=== PATIENT | male | born 1970 | race Caucasian/White ===

== ENCOUNTER 2020-09-30 15:54 | Emergency (ER) | payer OTHER, SELFPAY ==
[2020-09-30 16:15] VITALS: BP 151/70; PULSE 80; RESP 21; TEMP 37; O2SAT 99; BMI 51.6
[2020-09-30 16:19] VITALS: BP 151/70; PULSE 80; RESP 21; TEMP 37; O2SAT 99
--- NOTE | 2020-09-30 16:26 | XR_ITS ---
EXAMINATION: XR CHEST CLINICAL INFORMATION: Dyspnea. COMPARISON: None TECHNIQUE: Frontal upright portable view of the chest was obtained. FINDINGS: No significant abnormality is noted involving the heart, lungs, mediastinum, bony thorax or soft tissues. XR/XR chest 1V IMPRESSION: Unremarkable examination.
--- NOTE | 2020-09-30 16:26 | ECG_ITS ---
Test Reason : DYSPNEA/COVID+ Blood Pressure : / mmHG Vent. Rate : 082 BPM Atrial Rate : 082 BPM P-R Int : 156 ms QRS Dur : 094 ms QT Int : 372 ms P-R-T Axes : 024 030 033 degrees QTc Int : 434 ms Artifact in tracing Normal sinus rhythm Otherwise normal ECG When compared with ECG of 18-APR-2005 18:25, No significant changes seen Referred By: Lynn Diallo Electronically Signed By:LAUREN MONTIEL
--- NOTE | 2020-09-30 16:27 | ED_ITS ---
HPI - General Adult General Chief complaint: General Medical Stated complaint: Covid Positive Time Seen by Provider: 09/30/20 16:16 Source: patient Mode of arrival: ambulatory Limitations: no limitations History of Present Illness HPI narrative: 50 yo dx with COVID on 09/27 has had symptoms since 09/22 noted since last night his breathing and feeling of chest heaviness has worsened, also c/o diarrhea and feeling weak and dizzy complaint: dyspnea Onset (ago): day(s) (last night much worse today) Location: chest Radiation: non-radiation Severity: moderate Quality: aching Pain Consistency: constant Relieving factors: none Exacerbating factors: movement Associated symptoms: cough, loss of appetite, malaise, nausea/vomiting, shortness of breath, weakness and other (diarrhea) Treatments prior to arrival: other (tylenol) Related Data Previous Rx's Medication Instructions Recorded azithromycin See Rx Instructions PO .COMPLEX #6 09/30/20 tab Allergies Allergy/AdvReac Type Severity Reaction Status Date / Time No Known Allergies Allergy Unknown Unverified 06/17/20 15:13 Review of Systems Review of Systems: Constitutional : pos Fever, pos Chills ENT/Mouth : No sore throat, No Rhinorrhea, No Swallowing Difficulty Eyes: No Eye Pain, No Swelling, No Redness Cardiovascular : pos Chest Pain, positive SOB, No Orthopnea, no Edema Respiratory : pos Cough, No Sputum, No Wheezing, positive dyspnea Gastrointestinal : pos Nausea, No Vomiting, pos Diarrhea, pos abdominal Pain, No Hematochezia, No Melena Genitourinary : No Dysuria, No Urinary Frequency, No Hematuria Musculoskeletal : No joint pain, pos Myalgias Skin : No Skin Lesions, No rash Neuro : pos Weakness, No Numbness, No Dizziness, No Headache Psych : No Anxiety/Panic, No Depression Heme/Lymph: No Bruising, No Lymphadenopathy Endocrine : No Polyuria, No Polydipsia All other systems reviewed and are negative PMFSH Past Medical History Attestation statement: The following information was validated with the patient. Medical History Obesity Social History Social History Alcohol intake: current Alcohol intake frequency: holidays/special occasions only Alcohol type: wine Smoking Status: Never smoker Smoked in Last 30 Days: No Use of substances other than those prescribed or required for medical reasons: No Advance Directives: No Advance Directives Information Provided: No Physical Exam Vital Signs: Vital Signs: Last Vital Signs Temp 98.6 F 09/30/20 17:25 Pulse 83 09/30/20 17:25 Resp 20 09/30/20 17:25 BP 133/56 L 09/30/20 17:25 Pulse Ox 98 09/30/20 17:25 Body Mass Index 51.6 Appearance: Alert. Oriented X3. No acute distress. Anxious Eyes: Pupils equal, round and reactive to light. ENT: Pharynx normal. Neck: Normal inspection. Neck supple. CVS: Normal heart rate and rhythm. Pulses normal. Respiratory: No respiratory distress. Breath sounds bilateral rhonchi, very faint end exp wheezes posterior upper lobes Abdomen: Soft and non-tender. Skin: Skin warm and dry. Normal skin color. Normal skin turgor. Extremities: No lower extremity edema. No calf ttp Neuro: Oriented X 3. No motor deficit. No sensory deficit. Course Course Course Narrative: EKG and trop negative at 6hr charles, elevated ddimer CTA ordered for PE given complaints CTA negative for PE at this time, no hypoxia, will see how he feels he is able to tolerate PO, Medical Decision Making [facility] Narrative Medical decision making narrative: 50 yo male with obesity here with URI since 09/22 + COVID test came bace a few days ago since last night and this AM noted more dyspnea and chest tightness his RA sats are 100% now, will need labs, ddimer, troponin, EKG, CXR, given INH, very gentle fluid hydration he c/o dizziness and significant diarrhea - 1L of IVF over 2 hours ordered, dispo per results and findings. Lab Data Result diagrams: 09/30/20 16:58 09/30/20 16:58 Labs: Lab Results 09/30/20 09/30/20 09/30/20 Range/Units 16:58 16:58 16:58 WBC 6.4 (4.8-10.8) X10*3/uL RBC 5.45 (4.60-5.80) X10*6/uL Hgb 14.6 (14.0-18.0) g/dl Hct 43.5 (42-52) % MCV 79.8 L (80-98) fL MCH 26.8 L (27.0-33.0) pg MCHC 33.6 (31.0-36.0) g/dl RDW 12.6 (11.0-16.0) % Plt Count 325 (160-400) X10*3/uL MPV 9.7 (9.4-12.4) fL Immature Gran % (Auto) 0.6 H (0.0-0.4) % Neut % (Auto) 63.7 (45-73) % Lymph % (Auto) 22.2 (20-40) % [place] % (Auto) 13.0 H (2-11) % Eos % (Auto) 0.3 (0-4) % Baso % (Auto) 0.2 (0-2) % Lymph # (Auto) 1.4 (1.2-4.9) X10*3/uL [place] # (Auto) 0.8 (0.1-1.2) X10*3/uL Eos # (Auto) 0.0 (0.0-0.4) X10*3/uL Baso # (Auto) 0.0 (0.0-0.2) X10*3/uL Abs Immat Gran (auto) 0.04 H (0.00-0.03) X10*3/uL Absolute Neuts (auto) 4.1 (2.0-8.3) X10*3/uL Absolute Nucleated RBC 0.000 (0.0-0.012) X10*3/uL Nucleated RBC % (auto) 0.0 (0.0-0.2) /100WBC PT 14.4 H (10.8-13.0) SEC INR 1.2 H (0.9-1.1) APTT 30.5 (24.1-38.0) SEC D-Dimer 354 NG/ML VBG pH (7.32-7.43) VBG pCO2 mmhg VBG pO2 mmhg VBG HCO3 mmol/L VBG O2 Saturation % VBG Base Excess mmol/L Sodium 138 (135-145) mmol/L Potassium 3.3 (3.3-5.1) mmol/l Chloride 102 (96-108) mmol/L Carbon Dioxide 25 (22-29) mmol/L Anion Gap 14 (12-20) BUN 10 (9-16) mg/dL Creatinine 0.78 (0.5-1.4) mg/dL Estim Creat Clear Calc 156.1 Estimated GFR > 60 Random Glucose 102 (60-115) mg/dL Lactic Acid (0.5-2.0) mmol/L Calcium 8.7 (8.4-10.2) mg/dL Magnesium 1.9 (1.6-2.6) mg/dL Ferritin 437 H (20-250) ng/mL Total Bilirubin 0.4 (0.0-1.0) mg/dL Direct Bilirubin 0.2 (0.0-0.5) mg/dL AST 30 (5-37) U/L ALT 38 (0-40) U/L Alkaline Phosphatase 82 (39-117) U/L Lactate Dehydrogenase 252 (118-273) U/L Total Creatine Kinase 121 (38-174) U/L Troponin I High Sens (<3.5-35.0) ng/L B-Natriuretic Peptide (<100) pg/mL Total Protein 6.8 (6.5-8.0) g/dL Albumin 4.1 (3.5-5.0) g/dL Lipase 39 (8-78) U/L Procalcitonin ng/mL 09/30/20 09/30/20 09/30/20 Range/Units 16:58 16:58 16:58 WBC (4.8-10.8) X10*3/uL RBC (4.60-5.80) X10*6/uL Hgb (14.0-18.0) g/dl Hct (42-52) % MCV (80-98) fL MCH (27.0-33.0) pg MCHC (31.0-36.0) g/dl RDW (11.0-16.0) % Plt Count (160-400) X10*3/uL MPV (9.4-12.4) fL Immature Gran % (Auto) (0.0-0.4) % Neut % (Auto) (45-73) % Lymph % (Auto) (20-40) % [place] % (Auto) (2-11) % Eos % (Auto) (0-4) % Baso % (Auto) (0-2) % Lymph # (Auto) (1.2-4.9) X10*3/uL [place] # (Auto) (0.1-1.2) X10*3/uL Eos # (Auto) (0.0-0.4) X10*3/uL Baso # (Auto) (0.0-0.2) X10*3/uL Abs Immat Gran (auto) (0.00-0.03) X10*3/uL Absolute Neuts (auto) (2.0-8.3) X10*3/uL Absolute Nucleated RBC (0.0-0.012) X10*3/uL Nucleated RBC % (auto) (0.0-0.2) /100WBC PT (10.8-13.0) SEC INR (0.9-1.1) APTT (24.1-38.0) SEC D-Dimer NG/ML VBG pH (7.32-7.43) VBG pCO2 mmhg VBG pO2 mmhg VBG HCO3 mmol/L VBG O2 Saturation % VBG Base Excess mmol/L Sodium (135-145) mmol/L Potassium (3.3-5.1) mmol/l Chloride (96-108) mmol/L Carbon Dioxide (22-29) mmol/L Anion Gap (12-20) BUN (9-16) mg/dL Creatinine (0.5-1.4) mg/dL Estim Creat Clear Calc Estimated GFR Random Glucose (60-115) mg/dL Lactic Acid 1.3 (0.5-2.0) mmol/L Calcium (8.4-10.2) mg/dL Magnesium (1.6-2.6) mg/dL Ferritin (20-250) ng/mL Total Bilirubin (0.0-1.0) mg/dL Direct Bilirubin (0.0-0.5) mg/dL AST (5-37) U/L ALT (0-40) U/L Alkaline Phosphatase (39-117) U/L Lactate Dehydrogenase (118-273) U/L Total Creatine Kinase (38-174) U/L Troponin I High Sens 4.4 (<3.5-35.0) ng/L B-Natriuretic Peptide < 10 (<100) pg/mL Total Protein (6.5-8.0) g/dL Albumin (3.5-5.0) g/dL Lipase (8-78) U/L Procalcitonin 0.04 ng/mL 09/30/20 Range/Units 17:06 WBC (4.8-10.8) X10*3/uL RBC (4.60-5.80) X10*6/uL Hgb (14.0-18.0) g/dl Hct (42-52) % MCV (80-98) fL MCH (27.0-33.0) pg MCHC (31.0-36.0) g/dl RDW (11.0-16.0) % Plt Count (160-400) X10*3/uL MPV (9.4-12.4) fL Immature Gran % (Auto) (0.0-0.4) % Neut % (Auto) (45-73) % Lymph % (Auto) (20-40) % [place] % (Auto) (2-11) % Eos % (Auto) (0-4) % Baso % (Auto) (0-2) % Lymph # (Auto) (1.2-4.9) X10*3/uL [place] # (Auto) (0.1-1.2) X10*3/uL Eos # (Auto) (0.0-0.4) X10*3/uL Baso # (Auto) (0.0-0.2) X10*3/uL Abs Immat Gran (auto) (0.00-0.03) X10*3/uL Absolute Neuts (auto) (2.0-8.3) X10*3/uL Absolute Nucleated RBC (0.0-0.012) X10*3/uL Nucleated RBC % (auto) (0.0-0.2) /100WBC PT (10.8-13.0) SEC INR (0.9-1.1) APTT (24.1-38.0) SEC D-Dimer NG/ML VBG pH 7.48 H (7.32-7.43) VBG pCO2 35 mmhg VBG pO2 28 mmhg VBG HCO3 25 mmol/L VBG O2 Saturation 60.5 % VBG Base Excess 2.0 mmol/L Sodium (135-145) mmol/L Potassium (3.3-5.1) mmol/l Chloride (96-108) mmol/L Carbon Dioxide (22-29) mmol/L Anion Gap (12-20) BUN (9-16) mg/dL Creatinine (0.5-1.4) mg/dL Estim Creat Clear Calc Estimated GFR Random Glucose (60-115) mg/dL Lactic Acid (0.5-2.0) mmol/L Calcium (8.4-10.2) mg/dL Magnesium (1.6-2.6) mg/dL Ferritin (20-250) ng/mL Total Bilirubin (0.0-1.0) mg/dL Direct Bilirubin (0.0-0.5) mg/dL AST (5-37) U/L ALT (0-40) U/L Alkaline Phosphatase (39-117) U/L Lactate Dehydrogenase (118-273) U/L Total Creatine Kinase (38-174) U/L Troponin I High Sens (<3.5-35.0) ng/L B-Natriuretic Peptide (<100) pg/mL Total Protein (6.5-8.0) g/dL Albumin (3.5-5.0) g/dL Lipase (8-78) U/L Procalcitonin ng/mL ECG Data Attestation: I personally reviewed and interpreted this ECG as follows: Interpretation: Rate: 82 Rhythm: NSR [place]: normal Normal P waves. Normal ZACH. Normal QRS complex. ST T wave : no MELVIN qTC: normal prior studies: artifact, no acute ischemia The study has been interpreted contemporaneously by me. . Discharge Plan Discharge Clinical Impression: COVID-19, Pneumonia due to COVID-19 virus Patient Disposition: Home, Self-Care Instructions: COVID-19 (Coronavirus Disease 2019) (ED) Additional Instructions: return to ED for any worsening symptoms or concerns continue to hydrate, if you are so short of breath you cannot make it to your bathroom that is not normal you need to come back your labs looked good no signs of dehydration, your CT scan showed some patchy areas on the left lung that are consistent with COVId but no blood clot, your heart tests were normal, your oxygen levels remained over 98% Prescriptions: New azithromycin 500 mg tablet See Rx Instructions PO .COMPLEX Qty: 6 RF: 0 Stand Alone Forms: Work/School Release
[2020-09-30] MEDS: Albuterol Sulfate 90 MCG 8 GM INHALER 2 PUFF INHALE (16:37)
[2020-09-30 16:39] VITALS: PULSE 84; O2SAT 99
[2020-09-30 17:06] LABS: Basophils Percent Auto 0.2 % (0-2); Eosinophils Percent Auto 0.3 % (0-4); Hematocrit 43.5 % (42-52); Hemoglobin 14.6 g/dl (14.0-18.0); Imm Gran Abs Auto 0.04 X10*3/uL (0.00-0.03); Imm Gran Pct Auto 0.6 % (0.0-0.4); Lymphocytes Absolute Auto 1.4 X10*3/uL (1.2-4.9); Lymphocytes Percent Auto 22.2 % (20-40); MANUAL DIFF FLAG NO; Mean Corpuscular HGB Conc 33.6 g/dl (31.0-36.0); Mean Corpuscular Hemoglobin 26.8 pg (27.0-33.0); Mean Corpuscular Volume 79.8 fL (80-98); Mean Platelet Volume 9.7 fL (9.4-12.4); Monocytes Absolute Auto 0.8 X10*3/uL (0.1-1.2); Neutrophils Absolute Auto 4.1 X10*3/uL (2.0-8.3); Neutrophils Percent Auto 63.7 % (45-73); Platelet Count 325 X10*3/uL (160-400); Red Blood Count 5.45 X10*6/uL (4.60-5.80); Red Cell Distribution Width 12.6 % (11.0-16.0); White Blood Count 6.4 X10*3/uL (4.8-10.8)
[2020-09-30 17:14] LABS: INTERNATIONAL NORM RATIO 1.2 (0.9-1.1); Prothrombin Time 14.4 SEC (10.8-13.0)
[2020-09-30 17:15] LABS: HCO3 VBG 25 mmol/L; PCO2 VBG 35 mmhg; PO2 VBG 28 mmhg; pH VBG 7.48 (7.32-7.43)
[2020-09-30 17:16] LABS: Oxygen Saturation VBG 60.5 %
[2020-09-30 17:17] LABS: D Dimer 354 NG/ML; Partial Thromboplastin Time 30.5 SEC (24.1-38.0)
[2020-09-30 17:24] LABS: Lactic Acid 1.3 mmol/L (0.5-2.0)
[2020-09-30 17:25] VITALS: BP 133/56; PULSE 83; RESP 20; TEMP 37; O2SAT 98
--- NOTE | 2020-09-30 17:26 | CT_ITS ---
EXAMINATION: CT ANGIOGRAM OF THE CHEST WITH AND WITHOUT CONTRAST (CT PULMONARY ANGIOGRAM FOR PE) CLINICAL INFORMATION: Reason for Exam COVID positive, elevated ddimer eval for PE COMPARISON: None TECHNIQUE: Prior to contrast administration, noncontrast localization images were obtained. Subsequently, multidetector volumetric imaging was performed from the thoracic inlet to below the diaphragms following the administration of 65 mL Omnipaque 350 intravenous contrast. No contrast reaction reported Sagittal, coronal, and MIP oblique sagittal reformatted images were obtained on the CT workstation, uploaded to PACS, and reviewed. This CT examination was performed using dose optimization techniques as appropriate, variously including the following: *Automated exposure control *Adjustment of mA and/or kV according to patient size (this includes techniques or standardized protocols for targeted exams where dose is matched to indication/reason for exam; i.e. extremities or head) *Use of iterative reconstruction technique Total exam dose-length product 598 mGy-cm FINDINGS: [employer]: There are some patchy opacities in the left retrocardiac region and perhaps the left suprahilar region. QUALITY OF STUDY/CONTRAST BOLUS: The enhancement of the pulmonary vessels is marginal. There is some motion artifact. There is artifact related to high density within the SVC and left brachiocephalic vein. PULMONARY ARTERIES: No acute pulmonary embolus demonstrated. The main pulmonary artery is normal caliber. THORACIC AORTA: There is no thoracic aortic aneurysm. The heart is not enlarged. There is no pericardial fluid or thickening. LUNG: Expiratory results. No abnormality of the central airways. There are some scattered patchy opacities in the apical posterior left upper lobe and in the inferior lingula. There are patchy opacities in the left lower lobe and some minor opacities in the dependent right lower lobe and a few scattered opacities in the right upper lobe. The pattern is not entirely specific but is consistent with viral pneumonia. There is no alveolar edema. There is a small cyst in the right lower lobe. PLEURA: There is no significant pleural fluid. There is no pneumothorax. MEDIASTINUM: There are a few nonspecific mediastinal and hilar lymph nodes which could be reactive. No abnormality of the esophagus. No evidence of septal bowing or right heart strain. CHEST WALL/AXILLA: No axillary or internal mammary lymphadenopathy. OSSEOUS STRUCTURES: No acute or suspicious osseous abnormality. UPPER ABDOMEN: Fatty change in the liver. No suspicious abnormality. No reflux of contrast into the hepatic veins to suggest elevated right heart pressures. CT/CT angio chest PE protocol IMPRESSION: No acute pulmonary embolus. Scattered areas of pneumonia. In the appropriate clinical setting this could represent atypical viral pneumonia but is nonspecific. VTE: negative
[2020-09-30 17:31] LABS: Alanine Aminotransferase 38 U/L (0-40); Albumin Level 4.1 g/dL (3.5-5.0); Alkaline Phosphatase 82 U/L (39-117); Anion Gap 14 (12-20); Aspartate Amino Transferase 30 U/L (5-37); Bilirubin Direct 0.2 mg/dL (0.0-0.5); Bilirubin Total 0.4 mg/dL (0.0-1.0); Blood Urea Nitrogen 10 mg/dL (9-16); Calcium 8.7 mg/dL (8.4-10.2); Carbon Dioxide 25 mmol/L (22-29); Chloride 102 mmol/L (96-108); Creatinine Clr Calc Pharmacy 156.1; Estimated Glomerular Filt Rate > 60; Glucose Random 102 mg/dL (60-115); Lactate Dehydrogenase 252 U/L (118-273); Lipase 39 U/L (8-78); Magnesium 1.9 mg/dL (1.6-2.6); Potassium 3.3 mmol/l (3.3-5.1); Sodium 138 mmol/L (135-145); Total Protein 6.8 g/dL (6.5-8.0)
[2020-09-30 17:33] LABS: B Type Natriuretic Peptide < 10 pg/mL (<100); Troponin-I High Sensitivity 4.4 ng/L (<3.5-35.0)
[2020-09-30] MEDS: 0.9 % Sodium Chloride 1,000 ML 999 ML IVCONT (17:33)
[2020-09-30 17:48] LABS: Procalcitonin 0.04 ng/mL
[2020-09-30 17:51] LABS: Ferritin 437 ng/mL (20-250)
[2020-09-30] MEDS: iohexoL 350 MG/ML 100 ML INFUS..BTL IV (18:38)
== END 2020-09-30 19:54 | disposition home or self-care (01) ==
PROVIDERS: Emergency Provider Emergency Medicine; PCP Internal Medicine
DX: U07.1 COVID-19 (principal); J12.89 Other viral pneumonia
CPT/HCPCS: 36415; 71045; 71275; 80048; 80076; 82550; 82728; 82803; 83605; 83615; 83690; 83735; 83880; 84145; 84484; 85025; 85379; 85610; 85730; 87040; 93005; 94640; 96360; 99284; 99285; Q9967

== ENCOUNTER → 2021-04-18 20:20 | Outpatient (REF) | payer OTHER, SELFPAY | LOC: HO.SL 20:20 | PROVIDERS: PCP Internal Medicine; Visit Provider Internal Medicine | DX: G47.33 Obstructive sleep apnea (adult) (pediatric) (principal); R06.83 Snoring | CPT/HCPCS: 95811 ==

== ENCOUNTER 2022-06-02 07:18 | Outpatient (REF) | payer OTHER, SELFPAY ==
[2022-06-02 07:25] LABS: MANUAL DIFF FLAG NO
[2022-06-02 07:46] LABS: Basophils Absolute Auto 0.1 X10*3/uL (0.0-0.2); Basophils Percent Auto 0.5 % (0-2); Eosinophils Absolute Auto 0.2 X10*3/uL (0.0-0.4); Hematocrit 41.9 % (42.0-52.0); Hemoglobin 14.2 g/dl (14.0-18.0); Imm Gran Abs Auto 0.07 X10*3/uL (0.00-0.03); Imm Gran Pct Auto 0.6 % (0.0-0.4); Lymphocytes Absolute Auto 2.5 X10*3/uL (1.2-4.9); Lymphocytes Percent Auto 22.4 % (20-40); Mean Corpuscular HGB Conc 33.9 g/dl (31.0-36.0); Mean Corpuscular Hemoglobin 27.7 pg (27.0-33.0); Mean Corpuscular Volume 81.8 fL (80.0-98.0); Mean Platelet Volume 9.7 fL (9.4-12.4); Monocytes Percent Auto 8.8 % (2-11); Neutrophils Absolute Auto 7.2 x10*3/uL (2.0-8.3); Neutrophils Percent Auto 65.7 % (45-73); Platelet Count 321 X10*3/uL (160-400); Red Blood Count 5.12 X10*6/uL (4.60-5.80); Red Cell Distribution Width 12.8 % (11.0-16.0)
[2022-06-02 08:31] LABS: Alanine Aminotransferase 27 U/L (0-40); Albumin Level 3.8 g/dL (3.5-5.0); Alkaline Phosphatase 75 U/L (39-117); Anion Gap 15 (12-20); Aspartate Amino Transferase 18 U/L (5-37); Bilirubin Total 0.3 mg/dL (0.0-1.0); Blood Urea Nitrogen 16 mg/dL (9-16); Calcium 8.6 mg/dL (8.4-10.2); Carbon Dioxide 25 mmol/L (22-29); Chloride 105 mmol/L (96-108); Cholesterol 172 mg/dL; Estimated Glomerular Filt Rate > 60; Glucose Random 100 mg/dL (60-115); HDL Cholesterol 41 mg/dL; LDL Cholesterol Calculated 107 mg/dl; Potassium 4.5 mmol/L (3.3-5.1); Sodium 140 mmol/L (135-145); Total Protein 6.5 g/dL (6.5-8.0); Triglycerides 123 mg/dL
[2022-06-02 08:55] LABS: Prostate Specific Antigen 0.39 ng/mL (<0.05-4.0)
== END 2022-06-02 07:19 | disposition home or self-care (01) ==
LOC: HO.LAB 07:18
PROVIDERS: PCP Internal Medicine; Visit Provider Internal Medicine
DX: Z00.00 Encounter for general adult medical examination without abnormal findings (principal); Z12.5 Encounter for screening for malignant neoplasm of prostate
CPT/HCPCS: 36415; 80053; 80061; 84153; 85025

== ENCOUNTER 2024-11-28 09:53 | Emergency (ER) | payer OTHER, SELFPAY ==
--- NOTE | ~2024-11-28 | US_ITS ---
EXAMINATION: US TRIPLEX LOWER EXTREMITY, LEFT CLINICAL INFORMATION: Left leg swelling and pain. COMPARISON: None available. TECHNIQUE: Color-flow triplex imaging with spectral analysis and compression Doppler were performed on the left lower extremity. FINDINGS: Respiratory variation, normal compression and augmented flow are noted throughout the left lower extremity. The visualized common femoral vein, superficial femoral vein, profunda femoral vein, popliteal vein and midcalf peroneal and posterior tibial venous segments show no evidence of deep venous thrombosis. There is no Barkley's cyst. There is mild calf edema. US/US venous duplex LE IMPRESSION: No evidence of deep venous thrombosis involving the left lower extremity. Electronically signed by: Angel La MD 11/28/2024 11:50 AM SOCO
[2024-11-28 10:05] VITALS: BP 159/88; PULSE 81; RESP 20; TEMP 36.6; O2SAT 99; BMI 60.4
[2024-11-28 10:22] LABS: MANUAL DIFF FLAG NO
[2024-11-28 10:23] LABS: Basophils Absolute Auto 0.1 X10*3/uL (0.0-0.2); Basophils Percent Auto 0.5 % (0-2); Eosinophils Absolute Auto 0.3 X10*3/uL (0.0-0.4); Eosinophils Percent Auto 2.5 % (0-4); Hemoglobin 14.2 g/dl (14.0-18.0); Imm Gran Abs Auto 0.06 X10*3/uL (0.00-0.03); Imm Gran Pct Auto 0.5 % (0.0-0.4); Mean Corpuscular HGB Conc 33.8 g/dl (31.0-36.0); Mean Corpuscular Hemoglobin 28.3 pg (27.0-33.0); Mean Corpuscular Volume 83.7 fL (80.0-98.0); Mean Platelet Volume 9.6 fL (9.4-12.4); Monocytes Absolute Auto 0.9 X10*3/uL (0.1-1.2); Monocytes Percent Auto 8.2 % (2-11); Neutrophils Absolute Auto 7.8 x10*3/uL (2.0-8.3); Neutrophils Percent Auto 70.3 % (45-73); Platelet Count 330 X10*3/uL (160-400); Red Blood Count 5.02 X10*6/uL (4.60-5.80); Red Cell Distribution Width 13.2 % (11.0-16.0)
[2024-11-28 10:46] LABS: Alanine Aminotransferase 40 U/L (0-40); Albumin Level 3.9 g/dL (3.5-5.0); Anion Gap 10 (12-20); Aspartate Amino Transferase 26 U/L (5-37); Bilirubin Direct 0.2 mg/dL (0.0-0.5); Bilirubin Total 0.4 mg/dL (0.0-1.0); Blood Urea Nitrogen 13 mg/dL (9-16); Calcium 8.9 mg/dL (8.4-10.2); Carbon Dioxide 23 mmol/L (22-29); Chloride 112 mmol/L (96-108); Creatinine Clr Calc Pharmacy 185.9; Estimated Glomerular Filt Rate > 60; Glucose Random 104 mg/dL (60-115); Lipase 23 U/L (8-78); Sodium 141 mmol/L (135-145)
[2024-11-28 10:49] LABS: Alkaline Phosphatase 80 U/L (39-117)
[2024-11-28 17:21] VITALS: BP 176/84; PULSE 76; RESP 20; TEMP 36.2; O2SAT 98
--- NOTE | 2024-11-28 17:21 | ED_ITS ---
HPI - Skin/Abscess/Foreign Bdy General Chief complaint: Skin/Abscess/Foreign Body Stated complaint: l leg cellulitis Time Seen by Provider: 11/28/24 17:31 Source: patient, RN notes reviewed and old records reviewed Mode of arrival: ambulatory History of Present Illness ED Provider: Christy Hair PA-C HPI narrative: 54-year-old male with a past medical history of obesity presenting to the ED sent from urgent care complaining of left lower extremity swelling, erythema, and weeping x3-4 days. Reports bilateral LE edema, chronically. Denies fever, chills, SOB, CP, travel Related Data Previous Rx's ?Medication ?Instructions ?Recorded azithromycin 500 mg tablet See Rx Instructions PO .COMPLEX #6 09/30/20 tabs cephalexin 500 mg capsule 500 mg PO QID 7 days #28 caps 11/28/24 furosemide 20 mg tablet (Lasix) 20 mg PO DAILY 5 days #5 tabs 11/28/24 Allergies Allergy/AdvReac Type Severity Reaction Status Date / Time No Known Allergies Allergy Unknown Verified 11/28/24 10:09 Review of Systems 2 Review of Systems: Yes all other systems are reviewed and are negative Constitutional: Constitutional: Reports as per HPI [facility] Past Medical History Attestation statement: The following information was validated with the patient. Source: old records reviewed Medical History Obesity Social History Social History Alcohol intake: current Alcohol intake frequency: holidays/special occasions only Alcohol type: wine Physical Exam 2 Vital Signs: Vital Signs: Last Vital Signs Temp 97.2 F 11/28/24 17:21 Pulse 76 11/28/24 17:21 Resp 20 11/28/24 17:21 BP 176/84 H 11/28/24 17:21 Pulse Ox 98 11/28/24 17:21 O2 Del Method Room Air 11/28/24 17:21 BMI result Body Mass Index 60.4 Const: General: cooperative, healthy appearing and no acute distress O rientation/consciousness: patient oriented x3 Limitations: no limitations HEENT: Head: Yes normal to inspection and Yes atraumatic Ears: hearing grossly normal bilaterally General nose exam: Normal external nose present Face and sinus: Yes normal facial exam Eyes: General: appearance normal, both eyes and all related structures EOM: EOMs intact bilaterally Neck: Neck: Yes normal visual inspection and Yes no meningeal signs Resp: Effort & Inspection: normal respiratory effort and no respiratory distress Cardio: Rate: regular rate Skin: Rashes: no rashes Neuro: General: patient oriented x3, tone normal and no meningeal signs C ranial nerves: Yes CN's II-XII intact bilaterally Gait exam (Neuro): Normal gait present Extrem: Other: + bilateral LE nonpitting edema. Chroni c venous stasis changes bilaterally. +LLE with faint erythema, no warmth. No weeping/open wounds General: Yes edema Course Course Course Narrative: This is a Rapid Medical Exam performed in triage by Christy Hair PA-C. Full HPI, ROS and PE to be performed by primary ED provider. 54 yo M presenting to the ED c/o LLE erythema/swelling x3 days. +b/l LE swelling. denies SOB. denies hx HTN PE: +b/l LE edema, +LLE erythema, difficulty evaluating in the ED triage chair Plan: Labs, Blood Cx, US -1734-- WBC count 11.0. Labs otherwise reassuring US venous duplex LE LT IMPRESSION: No evidence of deep venous thrombosis involving the left lower extremity. Results discussed with patient including worrisome signs and symptoms and strict return precautions, and when to return to the emergency department. They verbalized understanding and feel safe for discharge at this time. Medical Decision Making Medical Decision Making [facility] Narrative: 54-year-old male with a past medical history of obesity presenting to the ED sent from urgent care complaining of left lower extremity swelling, erythema, and weeping x3-4 days. On exam vital signs, NAD, nontoxic appearing, physical exam as noted above. Concern for early cellulitis vs venous stasis changes vs DVT. Low suspcion for acute CHF w/chronic edema & no SOB. Plan: Labs, ultrasound Please refer to course for remaining clinical decision making, interpretation of labs/imaging results, and discussions with consultants and/or family members. Differential Diagnosis Differential Diagnoses: The differential diagnosis associated with the presentation includes As above Admission/Observation Consideration of admission/observation: Escalation of care including admission/observation considered Lab Data [facility] Lab Attestation statement: I reviewed the patient's lab results. 11/28/24 10:17 11/28/24 10:17 Labs: Lab Results 11/28/24 Range/Units 10:17 WBC 11.0 H (4.8-10.8) X10*3/uL RBC 5.02 (4.60-5.80) X10*6/uL Hgb 14.2 (14.0-18.0) g/dl Hct 42.0 (42.0-52.0) % MCV 83.7 (80.0-98.0) fL MCH 28.3 (27.0-33.0) pg MCHC 33.8 (31.0-36.0) g/dl RDW 13.2 (11.0-16.0) % Plt Count 330 (160-400) X10*3/uL MPV 9.6 (9.4-12.4) fL Immature Gran % (Auto) 0.5 H (0.0-0.4) % Neut % (Auto) 70.3 (45-73) % Lymph % (Auto) 18.0 L (20-40) % [place] % (Auto) 8.2 (2-11) % Eos % (Auto) 2.5 (0-4) % Baso % (Auto) 0.5 (0-2) % Lymph # (Auto) 2.0 (1.2-4.9) X10*3/uL [place] # (Auto) 0.9 (0.1-1.2) X10*3/uL Eos # (Auto) 0.3 (0.0-0.4) X10*3/uL Baso # (Auto) 0.1 (0.0-0.2) X10*3/uL Abs Immat Gran (auto) 0.06 H (0.00-0.03) X10*3/uL Absolute Neuts (auto) 7.8 (2.0-8.3) x10*3/uL Absolute Nucleated RBC 0.000 (0.0-0.012) X10*3/uL Nucleated RBC % (auto) 0.0 (0.0-0.2) /100WBC Sodium 141 (135-145) mmol/L Potassium 4.0 (3.3-5.1) mmol/L Chloride 112 H (96-108) mmol/L Carbon Dioxide 23 (22-29) mmol/L Anion Gap 10 L (12-20) BUN 13 (9-16) mg/dL Creatinine 0.69 (0.5-1.4) mg/dL Estim Creat Clear Calc 185.9 Estimated GFR > 60 Random Glucose 104 (60-115) mg/dL Calcium 8.9 (8.4-10.2) mg/dL Total Bilirubin 0.4 (0.0-1.0) mg/dL Direct Bilirubin 0.2 (0.0-0.5) mg/dL AST 26 (5-37) U/L ALT 40 (0-40) U/L Alkaline Phosphatase 80 (39-117) U/L Total Protein 7.0 (6.5-8.0) g/dL Albumin 3.9 (3.5-5.0) g/dL Lipase 23 (8-78) U/L Independent Interpretation I performed an independent interpretation of an: Ultrasound Radiology Impression Discussion of test interpretation with radiology: I have reviewed the radiologist's reading. External Record Review External record reviewed: Inpatient record, Office record, Outpatient record, Prior outpatient labs, Prior outpatient radiology, Primary care record and Outside ED record Tests considered The following testing was considered but not selected: As above Prescription Management I considered prescription management with: Pain Medication Chronic Conditions Patient?s care impacted by: Other Social Determinants Patient?s care significantly limited by Social Determinants of Health including: Other Social Determinant of Health Discharge Plan Discharge Clinical Impression: Cellulitis Patient Disposition: Home, Self-Care Instructions: Cellulitis (DC) Additional Instructions: your blood work and ultrasound were reassuring You should wear compression stockings. Elevate your legs Keflex as an antibiotic please take as prescribed Lasix as a water pill, this will make you urinate, and pull water off of your body. Please have close follow-up with your primary care doctor, call to make an appointment If your legs become increasingly swollen, red, weeping, you have fever or shortness of breath return to the ED immediately Prescriptions: New furosemide [Lasix] 20 mg tablet 20 mg PO DAILY 5 Days Qty: 5 0RF cephalexin 500 mg capsule 500 mg PO QID 7 Days Qty: 28 0RF No Action azithromycin 500 mg tablet See Rx Instructions PO .COMPLEX Qty: 6 0RF Rx Instructions: take 500 mg today (day 1), then 250 mg for 4 days (days 2-5) Referrals: Rigoberto Marcelino MD [Primary Care Provider] - 5 days Discharge Date/Time: 11/28/24 17:44 Print Language: British
[2024-11-28 17:44] VITALS: BP 176/84; PULSE 76; RESP 20; TEMP 36.2; O2SAT 98
--- OUTSIDE RECORDS SUMMARY | 2024-11-28 18:13 | XMS_ITS | Clinical Summary ---
Author Organization [facility] Address [address] [place] [address] Care Team Providers Care Certified Phlebotomy Technician Name Role Phone Pcp, No Primary Care Provider Unavailabl e Allergies No known active allergies Medications No known medications Social History Tobacco Use Types Packs/Day Years Used Date Smoking Tobacco: Never Assessed Sex and Gender Information Value Date Recorded Sex Assigned at Not on file Gender Identity Not on file Sexual Orientation Not on file Last Filed Vital Signs Vital Sign Reading Time Taken Comments Blood Pressure 131/84 12/27/2021 1:43 PM EDT Pulse 108 02/13/2022 2:31 PM EDT Temperature 36.7 ??C (98.1 ??F) 02/13/2022 2:31 PM ED T Respiratory Rate - - Oxygen Saturation 98% 02/13/2022 2:31 PM EDT Inhaled Oxygen Concentration - - Weight - - Height - - Body Mass Index - - Plan of Treatment Health Maintenance Due Date Last Done Comments Hepatitis C Virus Screening 1971 HIV Screening 1984 DTaP/Tdap/Td Vaccines (1 - Tdap) 1990 Hepatitis B Vaccines (1 of 3 - 19+ 3-dose series) 1990 Colonoscopy 2016 Pneumococcal Vaccines 50+ (1 of 1 - PCV) 2021 Zoster (Shingles) Vaccine (1 of 2) 2021 Influenza Vaccine 05/01/2024 COVID-19 Vaccine (3 - 2023-2 5 season) 2024 12/14/2020, 11/16/2020 Pneumococcal Vaccine: Pediatric (0-5 Years) and At-Risk Patients (6 to 49 Years) Aged Out No longer eligible b ased on patient's age to complete this topic Care Teams Certified Phlebotomy Technician Relationship Specialty Start Date End Date Pcp, No PCP - General General Medicine 12/27/21
--- OUTSIDE RECORDS SUMMARY | 2024-11-28 18:13 | XMS_ITS | Clinical Summary ---
Author Organization [facility] ity Address [address] [place] [address] Care Team Providers Care Railroad Maintenance Clerk Name Role Phone Rigoberto Marcelino MD Primary Care Provider [phone] Social History Tobacco Use Types Packs/Day Years Used Date Smoking Tobacco: Never Assessed Sex and Gender Information Value Date Recorded Sex Assigned at Not on file Legal Sex Male 12:15 PM EST Gender Identity Not on file Sexual Orientation Not on file Plan of Treatment Health Maintenance Due Date Last Done Comments DTaP,Tdap,and Td Vaccines (1 - Tdap) 1990 Hepatitis B Vaccines (1 of 3 - 19+ 3-dose series) 1990 Pneumococcal Vaccine: 50+ Years (1 of 1 - PCV) 2021 Zoster Vaccines (1 of 2) 2021 Cholesterol Screening (Lipid Panel) 08/29/2022 Colorectal Cancer Screening: Colonoscopy 08/29/2022 Depression Screening 08/29/2022 HIV Screening 08/29/2022 Hepatitis C Screening 08/29/2022 Social Influencers of Health Screening 08/29/2022 COVID-19 Vaccine (3 - 2023-2 5 season) 2024 12/14/2020, 11/16/2020 Influenza Vaccine (#1) 2024 HIB Vaccines Aged Out No longer eligi ble based on patient's age to complete this topic HPV Vaccines Aged Out No longer eligi ble based on patient's age to complete this topic Hepatitis A Vaccines Aged Out No long er eligible based on patient's age to complete this topic IPV Vaccines Aged Out No longer eligi ble based on patient's age to complete this topic MMR Vaccines Aged Out No longer eligi ble based on patient's age to complete this topic Meningococcal ACWY Vaccine Aged Out N o longer eligible based on patient's age to complete this topic Meningococcal B Vacine Aged Out No lo nger eligible based on patient's age to complete this topic Pneumococcal Vaccine: Pediatrics (0 to 5 Years) and At-Risk Patients (6 to 64 Years) Aged Out No longer eligible b ased on patient's age to complete this topic RSV Immunization Patients Under 20 months Aged Out No longer eligible b ased on patient's age to complete this topic Varicella Vaccines Aged Out No longer eligible based on patient's age to complete this topic Care Teams Railroad Maintenance Clerk Relationship Specialty Start Date End Date Rigoberto Marcelino MD [address] [place] [address] Dr Delta [place] PCP - General Brine Tank Separator Operator 11/16/20
--- OUTSIDE RECORDS SUMMARY | 2024-11-28 18:13 | XMS_ITS | Clinical Summary ---
Author Organization [facility] Address [address] [place] [address] Care Team Providers Care Support Services Specialist Name Role Phone Rigoberto Marcelino MD Primary Care Provider [phone] Allergies No known active allergies Immunizations Name Administration Dates Next Due Covid-19 (Pfizer) Dilution Required 12/14/2020,0 11/16/2020 Social History Tobacco Use Types Packs/Day Years Used Date Smoking Tobacco: Never Assessed Sex and Gender Information Value Date Recorded Sex Assigned at Male 11/16/2020 3:00 PM EST Gender Identity Not on file Sexual Orientation Not on file Job Start Date Occupation Industry Not on file Not on file Not on file Plan of Treatment Health Maintenance Due Date Last Done Comments Hepatitis B Vaccines (1 of 3 - 3-dose series) 1971 Hepatitis C Screening 1971 Depression Screening 1983 Preventative Health Evaluation 1989 DTap / Tdap / Td (1 - Tdap) 1990 Colon Cancer Screening (Colonoscopy) 2016 Shingrix-Zoster Vaccine (1 o f 2) 2021 COVID-19 Vaccine (3 - 2023-2 5 season) 2024 12/14/2020, 11/16/2020 Influenza Vaccine (#1) 2024 Pneumococcal Vaccine Aged Out No long er eligible based on patient's age to complete this topic RSV Ped < 20 months Aged Out No longe r eligible based on patient's age to complete this topic Care Teams Support Services Specialist Relationship Specialty Start Date End Date Rigoberto Marcelino MD [address] [place] [address] [address] [place] [address] PCP - General Testing Lead 11/16/20
== END 2024-11-28 17:44 | disposition home or self-care (01) ==
PROVIDERS: Emergency Provider Student in an Organized Health Care Education/Training Program; PCP Internal Medicine
DX: L03.116 Cellulitis of left lower limb (principal); R60.0 Localized edema; Z79.899 Other long term (current) drug therapy
CPT/HCPCS: 36415; 80048; 80076; 83690; 85025; 93971; 99282; 99284

== ENCOUNTER → 2024-11-28 11:23 | Outpatient (BNV) | payer OTHER, SELFPAY | PROVIDERS: PCP Internal Medicine; Visit Provider Radiology Diagnostic Radiology | DX: M79.662 Pain in left lower leg (principal); R22.42 Localized swelling, mass and lump, left lower limb | CPT/HCPCS: 93971 ==

== ENCOUNTER 2025-02-06 13:04 | Outpatient (AMB) | payer OTHER, SELFPAY ==
--- NOTE | 2025-02-06 12:44 | MHC.PC.OV ---
Vital Signs 02/06/25 13:16 Height 5 ft 6 in Weight 172.819 kg BMI 61.5 BP 134/82 Respiration 16 Pulse 101 H Pulse Source Pulse Oximeter Temp 98.4 F Temp Source Oral Pulse Oximetry (%) 96 Oxygen Delivery Method Room Air Intake Visit Reasons: ED F/U - see comments Bean Sprout Grower Required: No Accompanied by: Self / Same As Patient Allergies No Known Allergies Allergy (Unknown, Verified 02/06/25 13:12) Medication List - Last Reconciled 02/06/25 by LINDA Pack.stocking,knee,long,x-lrg Wear compression stockings daily, may remove at night for sleep furosemide 20 mg PO DAILY ondansetron 4 mg PO Q8H PRN semaglutide 5 mg subcut .weekly Tobacco use date assessed: 02/06/25 Dental Screening Dental Screen Date: 02/06/25 Did you have a dental visit in the last 12 months?: No Did you have a dental problem in the last 6 months where you did not have access to dental care?: No Was dental information given to patient?: Patient has dentist (Upper and lower Dentures) HPI HPI Comments History of Present Illness Details 54-year-old male with history of bilateral lower extremity with chronic venous stasis dermatitis and morbid obesity with BMI 61 presents to the office today for routine visit and ED follow-up. The patient reports he has a history of recurrent cellulitis in the left lower extremity. He has been hospitalized for this in the past. On 11/28 he again was seen at [facility] and diagnosed with cellulitis of the left lower extremity. There was a mild leukocytosis of 11.0. No sepsis. He was started on Keflex and azithromycin with good effect. Since then, he continues with bilateral lower extremity edema with occasional weeping of serous fluid. He is concerned about his weight. 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 He states recently he has not been trying much as far as weight loss but has in the past been seen by manager lab and going to the gym regularly. He reports a weight gain of 40 lb over the last year. He has also been seen at [facility] with Dr. Harris and trialed a high-protein low-carbohydrate diet with good effect. However despite this, has fallen back into on healthy habits. He is interested in GLP 1 medications. He does report some dyspnea with exertion that resolves quickly with rest as well as bilateral knee pain. No shortness a breath at rest, lightheadedness, palpitations, chest pain. He is also reporting symptoms of increased urinary frequency and increase fluid intake and is concerned about type 2 diabetes. He is also reporting frequent nighttime awakenings to urinate and urinary urgency upon waking. He is overdue for colonoscopy [facility] Medical History (Updated 02/06/25 @ 13:36 by LINDA Pack) Chronic stasis dermatitis Bilateral lower extremity edema HTN (hypertension) Obesity Family History (Updated 02/06/25 @ 13:15 by KIRA Mendoza) Mother Alzheimer disease High blood pressure Smoker Father Heart attack Arthritis Social History (Updated 02/06/25 @ 13:15 by KIRA Mendoza) Housing: House Alcohol intake: current Alcohol intake frequency: holidays/special occasions only Alcohol type: wine Patient Tobacco Use Status: Former Tobacco user service: No Current occupational status: employed Cognitive needs: No Hearing needs: No Vision needs: Yes (rx glasses) Questionnaire PHQ-9 Over the last 2 weeks, how often have you been bothered by any of the following problems? 1. Little interest or pleasure in doing things: not at all 2. Feeling down, depressed, or hopeless: not at all 3. Trouble falling or staying asleep, or sleeping too much: not at all 4. Feeling tired or having little energy: not at all 5. Poor appetite or overeating: not at all 6. Feeling bad about yourself - or that you are a failure or have let yourself or your family down: not at all 7. Trouble concentrating on things, such as reading the newspaper or watching television: not at all 8. Moving or speaking so slowly that other people could have noticed. Or the opposite - being so fidgety or restless that you have been moving around a lot more than usual: not at all 9. Thoughts that you would be better off or of hurting yourself in some way: not at all Total score: 0 Source: Developed by Drs. Casey Esquivel, Trini Goodson, Heri Guerrero and colleagues, with an educational melisa from [employer]. Thrive Questionnaire Date Thrive assessed: 02/06/25 I am a: Patient What is your living situation today?: I have a steady place to live Within the past 12 months, did the food you bought not last and you didn't have the money to get more?: Never true Within the past 12 months, did you worry whether your food would run out before you got money to buy more?: Never true Do you have trouble paying for medicines?: No Do you have trouble getting transportation to medical appointments?: No Do you have trouble paying your heating and electricity bill?: No Do you have trouble taking care of your child, family member or friend?: No Do you have trouble with day-to-day activities such as bathing, preparing meals, shopping, managing finances, etc.?: No Are you currently unemployed and looking for a job?: No Are you interested in more education?: No Please select the resources that you would like help with: None THRIVE Score: 0 AUDIT C Alcohol Use Questionnaire (AUDIT-C) 1. How often do you have a drink containing alcohol?: Monthly or less Total Score: 1 PRERNA-7 AMB Questionnaire PRERNA-7 Date PRERNA - 7 assessed: 02/06/25 Feeling nervous, anxious, or on edge: 0 = Not at all Not being able to stop or control worryin = Not at all Worrying too much about different things: 0 = Not at all Trouble relaxin = Not at all Being so restless that it is hard to sit still: 0 = Not at all Becoming easily annoyed or irritable: 0 = Not at all Feeling afraid as if something awful might happen: 0 = Not at all Total PRERNA-7 score (0-4 normal; 5-9 mild; 10-14 moderate; 15-21 severe): 0 Source: Developed by Drs. Casey Esquivel, Heri Genao and colleagues, with an educational melisa from [employer]. Review of Systems Const All systems reviewed & are unremarkable except as noted in HPI and below Physical exam (Primary Care) Vital Signs: Last Vital Signs Temp 98.4 F 02/06/25 13:16 Pulse 101 H 02/06/25 13:16 Resp 16 02/06/25 13:16 BP 134/82 02/06/25 13:16 Pulse Ox 96 02/06/25 13:16 Oxygen Delivery Method Room Air 02/06/25 13:16 BMI result Body Mass Index 61.5 Tobacco/Smoking Status: Tobacco use Status Tobacco use date assessed 02/06/25 02/06/25 13:10 Patient Tobacco Use Status Former Tobacco user 02/06/25 13:18 PHQ-9: PHQ-9 Score PHQ-9: Total score 0 02/06/25 13:25 Thrive Assessment: Date of Thrive Assessment Date Thrive assessed 02/06/25 02/06/25 13:10 Const Other: Constitutional - Awake and Alert, morbidly obese. No apparent distress Eyes - PERRLA, EOMI Cardiovascular - S1S2, RRR Respiratory - Normal lung expansion, Normal respiratory effort, No respiratory distress, CTA bilaterally Extremities - no calf tenderness bilaterally, no swelling Skin - Warm/Dry. Faint erythema of the bilateral lower legs with thickened, bumpy skin and 3+ pitting edema. Neurological - Alert & oriented x3 Psychological - Appropriate affect Coding Level of Care Code Tele New Pt Level 4 (51838) Complex EM visit Add On G2211 Diagnoses HTN (hypertension) I10 Cellulitis of left leg L03.116 Obesity E66.9 Chronic stasis dermatitis I87.2 Assessment & Plan Assessment & Plan (1) HTN (hypertension): Code(s): I10 - Essential (primary) hypertension Category: Medical Plan: Controlled in the office today with blood pressure 134/82. Not currently on antihypertensive agents. Recommend low-sodium diet. Will monitor blood pressures closely (2) Cellulitis of left leg: Code(s): L03.116 - Cellulitis of left lower limb Category: Medical Plan: Recurrent with recent ED visit, notes reviewed as well as labs, will resolution. Discussed with patient that given his chronic venous stasis dermatitis, he is at risk for recurrent cellulitis. Continue monitoring for or other symptoms of cellulitis including erythema, warmth, and drainage from venous ulcers. (3) Obesity: Code(s): E66.9 - Obesity, unspecified Category: Medical Plan: Class V obesity with BMI >61. Counseled on healthy diet and exercise which patient had been compliant with in the past. However, patient is at significant risk for cardiovascular disease, type II diabetes, and obstructive sleep apnea. Will trial semaglutide to help with weight loss which is imperative for patient's health. Will also check TSH and screen for type II diabetes. (4) Chronic stasis dermatitis: Code(s): I87.2 - Venous insufficiency (chronic) (peripheral) Category: Medical Plan: Lasix 20 mg daily prescribed to help with significant edema which puts patient at risk for venous ulcerations and cellulitis. Compression stockings also ordered. We will check BMP to evaluate renal function. Plan Follow-up in 3 months. Labs to be completed following visit today. He is referred to Gastroenterology for colon cancer screening. We will also check PSA for prostate cancer screening. Orders: Orders TSH reflex Free T4 Today E66.9 - Obesity, unspecified, I10 - Essential (primary) hypertension, R60.0 - Localized edema Hemoglobin A1c Today E66.9 - Obesity, unspecified, I10 - Essential (primary) hypertension, R60.0 - Localized edema Lipid Panel Today I10 - Essential (primary) hypertension, I87.2 - Venous insufficiency (chronic) (peripheral) Prostate Specific Antigen Today E66.9 - Obesity, unspecified, I10 - Essential (primary) hypertension, R60.0 - Localized edema Basic Metabolic Panel Today I10 - Essential (primary) hypertension, I87.2 - Venous insufficiency (chronic) (peripheral) Referrals Gastroenterology Referral I87.2 - Venous insufficiency (chronic) (peripheral), Z12.11 - Encounter for screening for malignant neoplasm of colon Medications: New furosemide 20 mg PO DAILY 90 tabs 1RF semaglutide 5 mg subcut .weekly 0.4 mL 4RF morbid obesity ondansetron 4 mg PO Q8H PRN 30 tabs 0RF nausea and vomiting compr.stocking,knee,long,x-lrg Wear compression stockings daily, may remove at night for sleep 12 ea 0RF Discontinued azithromycin Discontinued Reason: Patient Completed Course take 500 mg today (day 1), then 250 mg for 4 days (days 2-5) 6 tabs 0RF furosemide (Lasix) Discontinued Reason: Patient Completed Course 20 mg PO DAILY 5 days 5 tabs 0RF cephalexin Discontinued Reason: Patient Completed Course 500 mg PO QID 7 days 28 caps 0RF
--- OUTSIDE RECORDS SUMMARY | 2025-02-06 13:07 | XMS_ITS | Clinical Summary ---
Author Organization [facility] ity Address [address] [place] [address] Care Team Providers Care Nuclear Waste Management Engineer Name Role Phone Rigoberto Marcelino MD Primary Care Provider [phone] Social History Tobacco Use Types Packs/Day Years [...] 5 season) 2024 12/14/2020, 11/16/2020 Influenza Vaccine (Season Ended) 2025 HIB Vaccines Aged Out No longer eligi [...] age to complete this topic Meningococcal B Vaccine Aged Out No l onger eligible based on patient's age to complete [...] age to complete this topic Care Teams Nuclear Waste Management Engineer Relationship Specialty Start Date End Date Rigoberto Marcelino MD [address] [place] [address] Dr Delta [place] PCP - General Head Gauge Unit Operator 11/16/20
--- OUTSIDE RECORDS SUMMARY | 2025-02-06 13:07 | XMS_ITS | Clinical Summary ---
Author Organization [facility] Address [address] [place] [address] Care Team Providers Care Account Services Representative Name Role Phone Rigoberto Marcelino MD Primary Care Provider [phone] Allergies No known active allergies Immunizations Name [...] age to complete this topic Care Teams Account Services Representative Relationship Specialty Start Date End Date Rigoberto Marcelino MD [address] [place] [address] [address] [place] [address] PCP - General Major General 11/16/20
--- OUTSIDE RECORDS SUMMARY | 2025-02-06 13:07 | XMS_ITS | Clinical Summary ---
Author Organization [facility] Address [address] [place] [address] Care Team Providers Care Calender Machine Operator Helper Name Role Phone Pcp, No Primary Care Provider Unavailabl e Allergies No known active allergies Medications No known medications Social History Tobacco Use Types Packs/Day Years Used Date Smoking Tobacco: Never Assessed Sex and Gender Information Value Date Recorded Sex Assigned at Not on file Legal Sex Male 1:35 PM EDT Gender Identity Not on file Sexual Orientation [...] Zoster (Shingles) Vaccine (1 of 2) 2021 COVID-19 Vaccine (3 - 2023- season) 2024, 11/16/2020 Influenza Vaccine 05/01/[address]25 [place] [id number] [facility] HMO/POS Care Teams Calender Machine Operator Helper Relationship Specialty Start Date End Date Pcp, No PCP - General General Medicine 12/27/21
[2025-02-06 13:16] VITALS: BP 134/82; PULSE 101; RESP 16; TEMP 36.9; O2SAT 96; BMI 61.5
== END 2025-02-06 13:39 | disposition home or self-care (01) ==
LOC: HO.HMCHD 13:04
PROVIDERS: PCP Internal Medicine; Visit Provider Physician Assistant
DX: I10 Essential (primary) hypertension (principal); L03.116 Cellulitis of left lower limb; E66.9 Obesity, unspecified; Z68.44 Body mass index [BMI] 60.0-69.9, adult; I87.2 Venous insufficiency (chronic) (peripheral)

== ENCOUNTER 2025-07-09 09:48 | Outpatient (AMB) | payer OTHER, SELFPAY ==
--- NOTE | 2025-07-09 09:49 | MHC.OFFVIS ---
Vital Signs 07/09/25 09:50 Height 5 ft 6 in Weight 368 lb BMI 59.4 BP 116/58 L Blood Pressure Location Rt brachial Position Sitting Pulse 108 H Pulse Source Pulse Oximeter Pulse Oximetry (%) 97 Oxygen Delivery Method Room Air Intake Visit Reasons: colo screening Intake Note: New pt for initial colo screening. CC: Pt denies any GI sx or concerns at this time. No pertinent surgical or FMHx. Assignment Desk Assistant Required: No Accompanied by: Self / Same As Patient Allergies Seasonal Allergies Allergy (Mild, Verified 07/09/25 09:55) Sneezing HPI HPI colo screening: Details: 54-YEAR-OLD MALE HERE FOR PREPROCEDURAL MEETING to discuss a screening colonoscopy. He is referred by Nieves Sandoval. PMX Obesity Hypertension Lower extremity edema Stasis dermatitis with history cellulitis * SURGICAL HISTORY * ALLERGIES: NKDA * Dialective LABS: Laboratory Tests 11/28/24 10:17 WBC 11.0 H Hgb 14.2 Hct 42.0 Plt Count 330 Creatinine 0.69 Total Bilirubin 0.4 Direct Bilirubin 0.2 AST 26 ALT 40 Alkaline Phosphatase 80 TODAY'S VISIT [facility] Medical History Obesity Chronic stasis dermatitis Bilateral lower extremity edema HTN (hypertension) Family History Mother Alzheimer disease High blood pressure Smoker Father Heart attack Arthritis Social History Housing: House Alcohol intake: current Alcohol intake frequency: holidays/special occasions only Alcohol type: wine Patient Tobacco Use Status: Former Tobacco user service: No Current occupational status: employed Cognitive needs: No Hearing needs: No Vision needs: Yes (rx glasses) Review of Systems Const Denies fatigue, Denies fever(s), Denies night sweats, Denies poor appetite and Denies weight loss Eyes Reports requires corrective lenses ENT Reports Normal hearing present, Denies dental pain, Denies dysphagia, Denies hearing loss, Denies mouth pain, Denies odynophagia, Denies throat swelling, Denies tongue swelling and Reports other (Dentition adequate) GI Details: Denies abdominal pain, Denies melena, Denies bloating, Denies hematochezia, Denies constipation, Denies GI cramping, Denies dysphagia, Denies excessive flatus, Denies early satiety, Denies heartburn, Denies diarrhea, Denies nausea, Denies odynophagia, Denies vomiting and Denies hematemesis Skin/Breast Denies pruritus, Denies lesions, Denies rash and Denies jaundice Neuro Reports Normal hearing present and Denies Abnormal speech present Endo Denies fatigue Aller/Immun Denies throat swelling and Denies tongue swelling Physical Exam Vital Signs: Last Vital Signs Pulse 108 H 07/09/25 09:50 BP 116/58 L 07/09/25 09:50 Pulse Ox 97 07/09/25 09:50 Oxygen Delivery Method Room Air 07/09/25 09:50 BMI result Body Mass Index 59.4 Const General: cooperative, no acute distress, well developed and well groomed Nutritional Appearance: well nourished and obese morbidly obese Orientation/consciousness: oriented to person, oriented to place and oriented to time Limitations: No language barrier HEENT Head: Yes normocephalic and Yes atraumatic Eyes General: appearance normal, both eyes and all related structures Pupils: Equal, round and reactive pupils present Neck Neck: Yes normal visual inspection and Yes no lymphadenopathy Thyroid: Thyroid normal Resp Effort & Inspection: normal respiratory effort and able to speak in complete sentences Auscultation: clear to auscultation bilaterally Cardio Rate: regular rate Rhythm: regular rhythm Heart sounds: Normal, physiologic split S2 sound present Peripheral pulses: radial pulses present and posterior tibial pulses present GI Inspection: No distended, Yes Abdominal panniculus present and Yes obesity Palpation (GI): Soft to palpation, nontender, no guarding, not rigid and No hepatosplenomegaly present Percussion: Yes normal to percussion Auscultation: normal bowel sounds Rectal Exam - Male: Yes deferred Skin General skin exam: no rashes or lesions noted, turgor normal, skin not dry, no jaundice, No spider nevi and no striae Rashes: no rashes Nails: normal Neuro General: oriented to person, oriented to place and oriented to time Cranial nerves: Yes Equal, round and reactive pupils present and Yes Normal hearing present Speech: No Abnormal speech present Extrem General: Yes normal to inspection, No clubbing, No cyanosis and No edema Psych Thought process: Normal thought process present and not confabulating Thought content: Normal thought content present Insight: Good insight present (Psych) Judgement: Good judgement present (Psych) Assessment & Plan Assessment & Plan (1) Pre-op examination: Code(s): Z01.818 - Encounter for other preprocedural examination Category: Medical (2) Super obesity: Code(s): E66.9 - Obesity, unspecified Category: Medical Plan I explained to the patient the importance of colorectal cancer screening and the reason for the referral for colonoscopy given his age. Due to his weight, discussed the need for specialized equipment and the higher risks associated with the procedure. 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 The patient agreed to proceed with the Cologuard test, and I will order it through my staff. I explained we would reconvene in eight weeks to discuss the results and any further actions that might be necessary. Medications: New bisacodyl (Dulcolax (bisacodyl)) 10 mg (2 x 5 mg) PO BEDTIME 4 tabs 0RF 2 days Coding Level of Care Code New Pt Level 3 (38270) Diagnoses Pre-op examination Z01.818 Super obesity E66.9
[2025-07-09 09:50] VITALS: BP 116/58; PULSE 108; O2SAT 97; BMI 59.4
== END 2025-07-09 10:17 | disposition home or self-care (01) ==
LOC: HO.HGI 09:49
PROVIDERS: PCP Internal Medicine; Visit Provider Nurse Practitioner
DX: Z01.818 Encounter for other preprocedural examination (principal); Z12.11 Encounter for screening for malignant neoplasm of colon; E66.01 Morbid (severe) obesity due to excess calories; Z68.43 Body mass index [BMI] 50.0-59.9, adult
CPT/HCPCS: S0285

== ENCOUNTER 2025-09-01 08:48 | Emergency (ER) | payer OTHER, SELFPAY ==
[2025-09-01 09:05] VITALS: BP 185/94; PULSE 87; RESP 20; TEMP 35.9; O2SAT 97; BMI 60.4
--- NOTE | 2025-09-01 09:11 | ED.GENADULT ---
HPI - General Adult General Chief complaint: Skin/Abscess/Foreign Body Stated complaint: Skin Rash Time Seen by Provider: 09/01/25 09:10 Source: patient Mode of arrival: ambulatory Limitations: no limitations History of Present Illness ED Provider: Sharon Carreno PA-C HPI narrative: Patient is a 55 year old assigned male at with a history of recurrent left lower leg cellulitis and HTN presenting to the emergency department today with concerns of left lower leg cellulitis. Patient states that over the last week he has had left lower leg swelling, redness, and warmth - consistent with his previous cellulitis. Patient states that he has this all the time and this is another recurrence of it. Patient states that he used to see Dr. Marcelino but after long-term - his office stopped taking his insurance so he has not been able to establish with a new primary care provider. Patient denies any other complaints at this time. Relieving factors: none Exacerbating factors: none Associated symptoms: denies other symptoms Treatments prior to arrival: none Related Data Previous Rx's ?Medication ?Instructions ?Recorded compr.stocking,knee,long,x-lrg #12 ea 02/06/25 furosemide 20 mg tablet 20 mg PO DAILY #90 tabs 02/06/25 cephalexin 500 mg capsule 500 mg PO Q6H 7 days #28 caps 09/01/25 Allergies Allergy/AdvReac Type Severity Reaction Status Date / Time Seasonal Allergies Allergy Mild Sneezing Verified 09/01/25 09:08 Review of Systems Constitutional: Constitutional: Reports as per HPI Eyes: Eyes: Reports as per HPI ENT: Reports as per HPI Cardiovascular: Cardiovascular: Reports as per HPI Respiratory: Respiratory: Reports as per HPI Gastrointestinal: Gastrointestinal: Reports as per HPI Genitourinary: Genitourinary: Reports as per HPI Musculoskeletal: Musculoskeletal: Reports as per HPI Integumentary/Breasts: Skin/Breast: Reports as per HPI Neurologic: Reports as per HPI Psychiatric: Psychiatric: Reports as per HPI Endocrine: Endocrine: Reports as per HPI Hematologic/Lymphatic: Hematologic/Lymphatic: Reports as per HPI Allergic/Immunologic: Allergic/Immunologic: Reports as per HPI [facility] Past Medical History Attestation statement: The following information was validated with the patient. Source: old records reviewed and nursing notes reviewed Medical History Obesity Chronic stasis dermatitis Bilateral lower extremity edema HTN (hypertension) Family History Family History Mother Alzheimer disease High blood pressure Smoker Father Heart attack Arthritis Social History Social History Housing: House Alcohol intake: current Alcohol intake frequency: holidays/special occasions only Alcohol type: wine Patient Tobacco Use Status: Former Tobacco user Advance Directives: No Advance Directives Information Provided: No Do you have a plan to hurt others: No Plan service: No Current occupational status: employed Cognitive needs: No Hearing needs: No Vision needs: Yes (rx glasses) Physical Exam ED Vital Signs: Vital Signs - 24 hr 09/01/25 09:05 09/01/25 09:55 Temperature 96.6 F L 96.6 F L Pulse Rate 87 87 Respiratory Rate 20 20 Blood Pressure 185/94 H 185/94 H Pulse Oximetry 97 97 Oxygen Delivery Method Room Air Room Air BMI result Body Mass Index 60.4 Const General: cooperative, no acute distress, alert and awake Nutritional Appearance: well nourished Orientation/consciousness: patient oriented x3 HENMT Head: Yes normal to inspection and Yes atraumatic Ears: hearing grossly normal bilaterally and external ears normal General nose exam: Normal external nose present, no nasal discharge noted and no epistaxis Face and sinus: Yes normal facial exam, No abrasion and No laceration Mouth: Normal oral and palatal mucosa present, no drooling and no muffled voice Eyes General: appearance normal, both eyes and all related structures Periorbital: periorbital findings normal Eyelids: Yes eyelids normal Conjunctivae: conjunctivae normal Pupils: Equal, round and reactive pupils present EOM: EOMs intact bilaterally Neck Neck: Yes normal visual inspection and Yes full ROM Resp Effort & Inspection: normal respiratory effort and able to speak in complete sentences Neuro General: patient oriented x3, moves all extremities and CN's II-XI intact bilaterally Cranial nerves: Yes Equal, round and reactive pupils present Cognition (Neuro): normal cognition Extrem Other: General: Yes full ROM and Yes capillary refill normal Psych Appearance: grossly normal Mental Status: mental status grossly normal Affect: normal affect Attitude: cooperative Thought process: Normal thought process present Thought content: Normal thought content present Insight: Good insight present (Psych) Medical Decision Making Medical Decision Making MDM Narrative: Patient is a 55 year old assigned male at with a history of recurrent left lower leg cellulitis and HTN presenting to the emergency department today with concerns of left lower leg cellulitis. Patient's physical exam was as noted in the physical exam portion of this note. Patient's left lower leg was erythematous and warm - consistent with cellulitis. Given patient gets recurrent cellulitis in this leg, will prescribe an antibiotic. I explained my physical exam findings to the patient. I answered all questions asked by the patient. I stressed the importance of the patient taking his medication as directed (either prescribed or as the over the counter packaging recommends). I stressed the importance of the patient following up with his primary care provider. I stressed the importance of the patient returning to the emergency department immediately if his symptoms were to worsen or if he were to develop any dizziness, shortness of breath, difficulty breathing, chest pain, blurry vision, loss of vision, nausea, vomiting, abdominal pain, fever, chills, back pain, or any other complaints. Patient verbalized agreement and understanding with this treatment plan and discharge. Differential Diagnosis Differential Diagnoses: The differential diagnosis associated with the presentation includes Left lower leg cellulitis Admission/Observation Consideration of admission/observation: Escalation of care including admission/observation considered Patient would have been admitted to the hospital had his clinical presentation warranted hospital admission. Tests considered The following testing was considered but not selected: I considered obtaining a left lower leg ultrasound however, the patient's clinical presentation did not warrant that at this time. Prescription Management I considered prescription management with: Antibiotic (patient prescribed an antibiotic for left lower leg cellulitis) Discharge Plan Discharge Clinical Impression: Cellulitis Patient Disposition: Home, Self-Care Instructions: Cellulitis (ED) Additional Instructions: Take your antibiotic as prescribed. IF you are prescribed home medications and/or you are taking over the counter medications at home - it is very important you continue to do so as prescribed / directed unless told otherwise by a healthcare provider. Follow up with your primary care provider. Do your best to stay well hydrated and rest. Return to the emergency department immediately if your symptoms worsen or if you develop any numbness, tingling, dizziness, shortness of breath, difficulty breathing, chest pain, blurry vision, loss of vision, nausea, vomiting, abdominal pain, fever, chills, back pain, or any other complaints. If you do not have a primary care provider - call any of the below numbers to establish and follow up with a primary care provider. [facility] [place] [phone] [place] [address], [address] [facility] ([address] [place] [phone] 2 [facility], [address] [facility], [address] [facility] ([address] [place]) [phone] [address] [facility], [address] [facility], [address] [facility] ([place]) [phone] [place] [address], [address] [facility], [address] [facility] [phone] [address] [facility], [address] Please see the information below about our Patient Portal. If you are not yet enrolled in the [facility] Patient Portal, you will receive an enrollment email invitation following your visit to any [facility] care setting. You may also self-enroll in the Patient Portal by visiting our website: [email or web address] The following information is required to access the Patient Portal: - Your [facility] Record Number - Your personal home email address (must match what is in your electronic medical record, Registration staff can assist with this) - Name - Date of Capabilities of the Patient Portal: - Message some providers - View upcoming appointments - Access your health summary, medical history, and visit history - View current conditions and allergies - View procedure and lab results - View your medications, including guidelines, side effects, and precautions - Complete pre-appointment questionnaires requested by your provider - Ready summary reports of your office visits and procedures To access the Patient Portal Mobile Kelly, follow these directions: - Search [facility] in the Kelly Store or Google CyberX Store - Download the Kelly - Search for [facility] - Enter your login/password Prescriptions: New cephalexin 500 mg capsule 500 mg PO Q6H 7 Days Qty: 28 0RF No Action furosemide 20 mg tablet 20 mg PO DAILY Qty: 90 1RF (DME) compr.stocking,knee,long,x-lrg Misc See Rx Instructions .Route Qty: 12 0RF Rx Instructions: Wear compression stockings daily, may remove at night for sleep Stand Alone Forms: Work/School Release Interventions: ED Discharge Assessment Last Done: 09/01/25 09:55 Discharge Date/Time: 09/01/25 09:55 Print Language: Greenlandic
--- OUTSIDE RECORDS SUMMARY | 2025-09-01 09:46 | XMS_ITS ---
Author Name [facility] Organization Unknown Encounters Encounter Type Encounter Reason Primary Diagnosis Location Date Ambulatory Contact with and (suspected) exposure to covid-19 [place] 02/13/2022 Ambulatory Contact with and (suspected) exposure to covid-19 [place] 12/27/2021 Care Team Organization Name Specialty Phone Email Start Date End Da te [facility] PCP,No Primary Care 02/13/2022 05/19/2024 [place] NO PCP Primary Care 12/27/2021 02/13/2022 [place] 12/27/2021 12/27/2021
--- OUTSIDE RECORDS SUMMARY | 2025-09-01 09:46 | XMS_ITS | Clinical Summary ---
Author Organization [facility] Address [address] [place] [address] Care Team Providers Care Apprise Counselor Name Role Phone Pcp, No Primary Care [...] 108 02/13/2022 2:31 PM EDT Temperature 36.7 C (98.1 F) 02/13/2022 2:31 PM EDT Respiratory Rate - - Oxygen Saturation 98% [...] Vaccine (1 of 2) 2021 Influenza Vaccine 05/01/2025 COVID-19 Vaccine (3 - 2024- season) 2025, 11/16/2020 RSV Vaccine 50 years and old er and Patients (1 - 1-dose 75+ series) 2046 [place] [id number] [facility] HMO/POS Care Teams Apprise Counselor Relationship Specialty Start Date End Date Pcp, No PCP - General General Medicine 12/27/21
--- OUTSIDE RECORDS SUMMARY | 2025-09-01 09:46 | XMS_ITS | Clinical Summary ---
Author Organization [facility] ity Address [address] [place] [address] Care Team Providers Care Grease Man Name Role Phone Rigoberto Marceilno MD Primary Care Provider [phone] Social History Tobacco Use Types Packs/Day Years [...] 2021 Zoster Vaccines (1 of 2) 2021 Depression Screening 10/01/2024 COVID-19 Vaccine (3 - 2024-2 6 season) 2025 12/14/2020, 11/16/2020 Influenza Vaccine (#1) 2025 RSV Immunization Adult Patients (1 - 1-dose 75+ series) 2046 HIB Vaccines Aged Out No longer eligi [...] age to complete this topic Care Teams Grease Man Relationship Specialty Start Date End Date Rigoberto Marcelino MD [address] [place] [address] Dr Delta [place] PCP - General Crusher Tender 11/16/20
--- OUTSIDE RECORDS SUMMARY | 2025-09-01 09:46 | XMS_ITS | Clinical Summary ---
Author Organization [facility] Address [address] [place] [address] Care Team Providers Care Meter And Service Line Inspector Name Role Phone Rigoberto Marcelino MD Primary Care Provider [phone] Allergies No known active allergies Immunizations Name [...] f 2) 2021 COVID-19 Vaccine (3 - 2024-2 6 season) 2025 12/14/2020, 11/16/2020 Influenza Vaccine (#1) 2025 Pneumococcal Vaccine Aged Out No long er eligible based on patient's age to complete this topic RSV Ped < 20 months Aged Out No longe r eligible based on patient's age to complete this topic Care Teams Meter And Service Line Inspector Relationship Specialty Start Date End Date Rigoberto Marcelino MD [address] [place] [address] [address] [place] [address] PCP - General Blending Tank Helper 11/16/20
[2025-09-01 09:55] VITALS: BP 185/94; PULSE 87; RESP 20; TEMP 35.9; O2SAT 97
== END 2025-09-01 09:55 | disposition home or self-care (01) ==
PROVIDERS: Emergency Provider Emergency Medicine; PCP Internal Medicine
DX: L03.116 Cellulitis of left lower limb (principal); I10 Essential (primary) hypertension; Z87.891 Personal history of nicotine dependence
CPT/HCPCS: 99282; 99283